=== PATIENT | female | born 1990 | race African-American/Black ===

== ENCOUNTER 2023-02-09 00:28 | Emergency (ER) | payer BC ==
[~2023-02-09] VITALS: Ht 167.6 cm; Wt 124.3 kg
--- NOTE | 2023-02-09 00:54 | NUR ---
Dr. Garduno in room examingin patient.
[2023-02-09] MEDS ORDERED: HYDROCODONE/APAP 10-325 MG TABLET ONE (01:08)
[2023-02-09] MEDS ORDERED: IBUPROFEN 800 MG TABLET ONE (01:08)
[2023-02-09] MEDS ORDERED: HYDR-4209 PO (01:09)
[2023-02-09] MEDS ORDERED: IBUP-1958 PO (01:09)
[2023-02-09] MEDS ORDERED: HYDROCODONE/APAP 10-325 MG TABLET PO ONE (01:15)
[2023-02-09] MEDS ORDERED: IBUPROFEN 800 MG TABLET PO ONE (01:15)
[2023-02-09] MEDS ORDERED: AMOX500C2 PO (01:17)
--- NOTE | 2023-02-09 01:25 | NUR ---
Patient discharged to home in stable condition. Written and verbal after care instructions given. Patient verbalizes understanding of instructions. Stressed follow up or return to ER for worsening s/s. Patient walked out with steady gait.
[2023-02-09 03:37] VITALS: BP 143/80
== END 2023-02-09 01:28 | disposition home or self-care (01) ==
LOC: ER 00:37
DX: K08.89 Other specified disorders of teeth and supporting structures (principal); I10 Essential (primary) hypertension
CPT/HCPCS: A4663